=== PATIENT | female | born 1940 | race Caucasian/White ===

== ENCOUNTER 2016-09-02 18:15 | Emergency (ER) | payer MEDICARE, OTHER ==
[~2016-09-02] VITALS: Ht 163.8 cm; Wt 70.0 kg
[2016-09-02 18:16] VITALS: BP 156/80; PULSE 71; RESP 16; TEMP 98; O2SAT 98
[2016-09-02] MEDS ORDERED: ZOCO20TA PO (18:34)
[2016-09-02] MEDS ORDERED: LISI10TA3 PO (18:34)
[2016-09-02] MEDS ORDERED: HYDR12.57 PO (18:34)
[2016-09-02] MEDS ORDERED: FAMO20TA2 PO (18:34)
[2016-09-02] MEDS ORDERED: ALEN1TAB48 PO (18:34)
[2016-09-02] MEDS ORDERED: ASPI81TA81 (18:34)
[2016-09-02] MEDS ORDERED: CALCTAB80 PO (18:34)
[2016-09-02] MEDS ORDERED: NAPR250T PO (18:34)
--- NOTE | 2016-09-02 18:41 | PD ---
HPI Chief Complaint: Fall Time Seen by Provider: 18:29 Travel History International Travel<30 days: No Contact w/Intl Traveler<30days: No Traveled to known affect area: No History of Present Illness HPI The patient is a 76-year-old female who presents to the emergency department after a trip and fall. The patient states she tripped over some uneven ground earlier today and fell forward, landing on her knees and striking her chin on the ground. The patient denies any loss of consciousness, does note some abrasions to the knees and the chin. The patient was seen at an urgent care prior to arrival, had her tetanus shot updated, but was referred to the emergency department for imaging of her mandible. The patient does complain of bilateral jaw pain, but denies any difficulty opening or closing her jaw. However, she does have discomfort with opening her jaw and jaw movement. She has been able to drink fluids without difficulty, however, has not attempted to eat solid foods. The patient denied any LOC with the fall and denies taking any current blood thinners. The patient denies any neck pain, chest pain, shortness of breath, abdominal pain, or syncope. PFSH Past Medical History Cardiovascular Problems: Yes (HTN) High Cholesterol: Yes Hypertension: Yes Tetanus Vaccination: < 5 Years Influenza Vaccination: Yes ?: Not Past Surgical History Surgical History: No Previous Surgery Social History Alcohol Use: No Tobacco Use: No Substance Use: No Allergies-Medications (Allergen,Severity, Reaction): Coded Allergies: Augmentin (Verified Adverse Reaction, Severe, DIARRHEA, 09/02/16) Ciprofloxacin (Verified Adverse Reaction, Severe, DIARRHEA, 09/02/16) Reported Meds & Prescriptions Reported Meds & Active Scripts Active Reported Famotidine 20 Mg Tab 20 Mg PO BID Aspir-81 (Aspirin) 81 Mg Tabdr Zocor (Simvastatin) 20 Mg Tab 20 Mg PO DAILY Hydrochlorothiazide 12.5 Mg Cap 12.5 Mg PO DAILY Lisinopril 10 Mg Tab 10 Mg PO DAILY Naproxen 250 Mg Tab 250 Mg PO BID Calcium 1000 + D (Calcium Carbonate-Cholecalciferol) 1,000-800 Mg-Unit Tab 1 Tab PO Alendronate (Alendronate Sodium) 70 Mg Tab 70 Mg PO Q7D Review of Systems Except as stated in HPI: all other systems reviewed are Neg General / Constitutional: No: Fever Eyes: No: Blurred Vision HENT: Positive: Other (as noted in the history of present illness), No: Headaches, Lightheadedness, Neck Pain Cardiovascular: No: Chest Pain or Discomfort, Palpitations, Syncope Respiratory: No: Shortness of Breath Gastrointestinal: No: Nausea, Vomiting, Abdominal Pain Musculoskeletal: Positive: Other (notes abrasions of the knees, however, is able to ambulate without difficulty) Skin: Positive Other (abrasions to the knees bilaterally) Neurologic: No: Headache, Change in Mentation, Paresthesia, Sensory Disturbance Physical Exam Narrative GENERAL: Awake, alert, pleasant 76-year-old female who appears her stated age and is in no acute respiratory distress. SKIN: Abrasions over the chin, nose, knees bilaterally. Puncture wound over the midline of the neck just inferior to the mentum. HEAD: Abrasions noted. EYES: Pupils equal and round. Pupils are 4 mm bilateral and reactive. ENT: No nasal bleeding or discharge. Ecchymosis noted over the left aspect of the tongue. Superficial laceration on the inside of the left lower lip. No septal hematoma noted. Mild tenderness over the TMJ bilaterally, however, patient is able to open and close her jaw, alignment appears normal. NECK: Trachea midline. No JVD. No tenderness of the cervical vertebrae. CARDIOVASCULAR: Regular rate and rhythm. No murmur appreciated. RESPIRATORY: No accessory muscle use. Clear to auscultation. Breath sounds equal bilaterally. GASTROINTESTINAL: Abdomen soft, non-tender, nondistended. No rebound tenderness. MUSCULOSKELETAL: Superficial abrasions to the extensor surface of the knees bilaterally. Patellas are midline. Strength with extension of the knees is 5/ 5 and patient is able to ambulate without difficulty. NEUROLOGICAL: Awake and alert. No obvious cranial nerve deficits. Motor grossly within normal limits. Normal speech. Nonfocal. Oriented 4. Follows commands without difficulty. PSYCHIATRIC: Appropriate mood and affect; insight and judgment normal. Data Data Last Documented VS Vital Signs Date Time Temp Pulse Resp B/P Pulse Ox O2 Delivery O2 Flow Rate FiO2 09/02/16 18:16 98.0 71 16 156/[address] Facial Bones W/O Iv Cont (09/02/16 ) Wound Care (09/02/16 18:36) MDM Medical Decision Making Medical Screen Exam Complete: Yes Emergency Medical Condition: Yes Medical Record Reviewed: Yes Interpretation(s) Last Impressions Maxillofacial CT 09/02/16 0000 Signed Impressions: Service Date/Time: Friday, September 02, 2016 18:37 - CONCLUSION: No evidence of acute fracture. Partially opacified left maxillary sinus containing fluid. Adalberto Damon MD Differential Diagnosis Differential diagnosis includes mechanical fall, laceration, abrasion, contusion , fracture, dislocation. Narrative Course The patient's tetanus shot was updated just prior to arrival. The patient's wounds were cleaned and patient has Steri-Strips over the puncture wound of the neck. CT of the facial bones was ordered to evaluate the mandible. CT the facial bones is negative for fracture. The patient will be placed on Peridex for the puncture wound on the inside of the mouth. She is advised to have bacitracin to the abrasions. Wound care instructions are given. She is to follow-up with her primary physician. Diagnosis Primary Impression: Abrasion of face Qualified Code: S00.81XA - Abrasion of face, initial encounter Additional Impressions: Jaw pain Puncture wound Patient Instructions: General Instructions Additional Instructions: Peridex as directed. Tylenol and or Motrin for pain. Bacitracin twice a day, wound care instructions, follow-up with your primary physician. Please provide the patient a copy of her CT results at discharge. Med/Other Pt SpecificInfo: Prescription(s) given Scripts Chlorhexidine Gluconate (Mouth) Liq (Peridex Liq)0.12% Soln15 Ml SWISH-SPIT BID #[id number] ML Ref 0 Prov:Nash Williamson MD 09/02/16 Disposition: DISCHARGE HOME Condition: Stable Nash Williamson MD Sep 02, 2016 18:41
--- NOTE | 2016-09-02 19:25 | RADHPO ---
EXAM DATE/TIME: 09/02/2016 18:37 [facility] COMPARISON: No previous studies available for comparison. INDICATIONS : Trauma, fall. RADIATION DOSE: 25.64 CTDIvol (mGy) MEDICAL HISTORY : Hypertension. Cardiovascular disease SURGICAL HISTORY : None. ENCOUNTER: Initial ACUITY: 2 days PAIN SCORE: 5/10 LOCATION: Bilateral TMJ and mentum TECHNIQUE: Volumetric scanning of the facial bones was performed. Using automated exposure control and adjustme nt of the mA and/or kV according to patient size, radiation dose was kept as low as reasonably achiev able to obtain optimal diagnostic quality images. FINDINGS: ORBITS: The orbital and infraorbital osseous structures are intact. The retroconal structures have a normal configuration. No radiopaque foreign bodies are seen. NASAL BONE: The nasal bone and maxillary spine are intact ZYGOMATIC ARCHES: Symmetric without evidence of fracture. SINUSES: The left maxillary sinus is partially opacified and contains an air-fluid level. Sinuses are otherwis e clear. NASAL CAVITY: The nasal septum is intact and midline. The lacrimal ducts are intact. SOFT TISSUES: No radiopaque foreign bodies seen. No soft-tissue swelling is seen. INTRACRANIAL: No intracranial air seen. CRIBIFORM PLATE: Grossly intact. CONCLUSION: No evidence of acute fracture. Partially opacified left maxillary sinus containing fluid. Adalberto Damon MD on September 02, 2016 at 19:21 Board Certified Radiologist. This report was verified electronically.
[2016-09-02] MEDS ORDERED: PERI0.126 SWISH-SPIT (19:44)
== END 2016-09-02 19:54 | disposition home or self-care (01) ==
LOC: PHEFT 18:15
DX: S00.81XA Abrasion of other part of head, initial encounter (principal); R68.84 Jaw pain; S01.532A Puncture wound without foreign body of oral cavity, initial encounter; I10 Essential (primary) hypertension; E78.00 Pure hypercholesterolemia, unspecified; Z86.79 Personal history of other diseases of the circulatory system; W01.0XXA Fall on same level from slipping, tripping and stumbling without subsequent striking against object, initial encounter; Y93.01 Activity, walking, marching and hiking
CPT/HCPCS: 70486